=== PATIENT | male | born 1945 | race Caucasian/White ===

== ENCOUNTER 2016-12-26 19:52 | Inpatient (IN) | payer OTHER ==
--- NOTE | ~2016-12-26 | HP ---
History And Physical [address] [address] NAME: SHANNON SANDOVAL : 45 STATUS : ADM IN PAT#: [id number] AGE: 71 ADM/REG DATE : 12/26/16 MR#: [id number] REPORT SERV DATE: 12/27/16 DICTATED BY: SHANNON HARE DATE: 12/27/16 REPORT STATUS : Draft TRANSCRIBED BY: MODL DATE: 12/27/16 DATE OF ADMISSION: 12/26/2016 CHIEF COMPLAINT: Left hip pain. HISTORY: A 71-year-old male, fell walking in [place] and injured his left hip. Denies pain or injury elsewhere. No associated loss of consciousness, shortness of breath, chest pain, etc. ALLERGIES: NONE. MEDICATIONS: See chart. PAST MEDICAL HISTORY: History of CHF, AFib, hyperlipidemia, pleural effusion, COPD, renal failure, and diabetes. PAST SURGICAL HISTORY: Unknown. SOCIAL HISTORY: Two packs a day cigarettes for 50 years. Drinks alcohol, but is unclear how much. Here with his family. FAMILY HISTORY: No known anesthetic complications. REVIEW OF SYSTEMS: As above. PHYSICAL EXAMINATION: GENERAL: He is alert and oriented x3, in no apparent distress. HEENT: Atraumatic and normocephalic. NECK: Supple. CHEST: Symmetric and nontender. LUNGS: Per AA evaluation. CV: Regular. ABDOMEN: Soft. No mass. EXTREMITIES: Left lower extremity is short and externally rotated. SKIN: Intact. Compartment supple. 2+ pulses. NEURO: Sensorimotor without deficit. ASSESSMENT: Left intertrochanteric femur fracture. PLAN: ORIF. Risks, benefits, etc., were explained. The patient wishes to proceed. WTB/MODL History And Physical [address] [address] NAME: SHANNON SANDOVAL : 45 STATUS : ADM IN PAT#: [id number] AGE: 71 ADM/REG DATE : 12/26/16 MR#: [id number] REPORT SERV DATE: 12/27/16 DICTATED BY: SHANNON HARE DATE: 12/27/16 REPORT STATUS : Draft TRANSCRIBED BY: RUPERTO DATE: 12/27/16 Kathleen Hare M.D. / [id number] CC: Jen Freed JAMES DANIEL
--- NOTE | ~2016-12-26 | DS ---
Discharge Summary [facility] [address] [place]. [address] NAME: SHANNON SANDOVAL : 45 STATUS : DIS IN PAT#: [id number] AGE: 71 ADM/REG DATE : 12/26/16 MR#: [id number] REPORT SERV DATE: 01/04/17 DICTATED BY: SKINNY FINK DATE: 01/03/17 REPORT STATUS : Draft TRANSCRIBED BY: MODMayito DATE: 01/03/17 ADMISSION DATE: 12/26/2016 DISCHARGE DATE: 01/03/2017 DISCHARGE DIAGNOSES: 1. Mechanical fall with left hip fracture. 2. Chronic atrial fibrillation. 3. Probable dementia. 4. End-stage renal disease. 5. Hypertension. 6. Dialysis. CONSULTANTS: 1. Nephrology. 2. Orthopedic Surgery. HOSPITAL COURSE: This is a 71-year-old gentleman who was admitted to the hospital with a fall that resulted in a left hip fracture. There is an interim discharge summary by Dr. Omar Feng on 01/01/2017. I assumed care from 01/02/2017 and saw him for two days. At this point in time, we are simply waiting for insurance to authorize the patient's transfer to [facility]. The patient is being discharged today after insurance authorization. There is nothing more to add to the interim discharge summary by Dr. Feng. [facility]/RUPERTO Skinny Fink MD / [id number] CC: MD Arian Zuluaga
--- NOTE | ~2016-12-26 | OP ---
Record Of Operation [facility] [address] [place]. [address] NAME: SHANNON SANDOVAL : 45 STATUS : ADM IN [facility]#: [id number] AGE: 71 ADM/REG DATE : 12/26/16 MR#: [id number] REPORT SERV DATE: 12/27/16 DICTATED BY: OSMAN NETTLES DATE: 12/26/16 REPORT STATUS : Draft TRANSCRIBED BY: RUPERTO DATE: 12/26/16 DATE OF PROCEDURE: 12/26/2016 PROCEDURE PERFORMED: Left subclavian central venous line placement. INDICATION FOR PROCEDURE: No IV access at home. DESCRIPTION OF PROCEDURE: After informed consent was obtained from the , procedure was performed in the emergency room. The patient was prepped with chlorhexidine, draped completely. Using an Arrow triple-lumen catheter kit, the left subclavian vein was entered in the usual fashion without any bleeding or difficulty. A triple-lumen catheter was placed over guidewire. Lines were flushed and the central line was secured in place. The patient tolerated the procedure well. There were no immediate complications. A postprocedure chest x-ray will be performed and I will review it. /RUPERTO Osman Nettles M.D. / [id number] CC: Jen Freed
--- NOTE | ~2016-12-26 | HP ---
History And Physical [place] [id number] [facility] [place]. [address] NAME: SHANNON COSTA : 45 STATUS : ADM IN [facility]#: [id number] AGE: 71 ADM/REG DATE : 12/26/16 MR#: [id number] REPORT SERV DATE: 12/27/16 DICTATED BY: OSMAN NETTLES DATE: 12/26/16 REPORT STATUS : Draft TRANSCRIBED BY: MODMayito DATE: 12/26/16 DATE OF ADMISSION: 12/26/2016 CHIEF COMPLAINT: 1. Mechanical fall. 2. Left hip pain. HISTORY OF PRESENT ILLNESS: This is a 71-year-old female, who presents to the emergency room at [facility] with the above-mentioned complaint. History is obtained from the patient, but more so from his who is at bedside, as the patient was under the influence of narcotic pain medications. Review of data available on the [employer] system was also performed. According to available data, Mr. Costa fell down today in the parking lot of a restaurant as he got out of his car and he was walking towards the restaurant. His was still locking up the car and was not with him, and did not really see the fall, but she knew he fell. She rushed over there and he had sudden onset of excruciating left-sided pain and could not get up. EMS was summoned, and the patient was brought to the emergency room here for evaluation. At the time of my evaluation, he denied any chest pain, palpitations, or orthopnea. He has no cough, hemoptysis, night sweats, or weight loss. He had not had any other falls or loss of consciousness according to the . No history of recent fevers, chills, nausea, vomiting, or diarrhea. No history of recent hematemesis, hematochezia, or hematuria. He is on hemodialysis which was started yesterday again in [place]. Apparently he was followed by Nephrology here, had hemodialysis at [facility] and then at the [facility] here, but then was transferred to [place], [place], where they live. The patient's is unfortunately not able to tell us who the boiler inspector was. PAST MEDICAL HISTORY: His past medical history is significant for: 1. End-stage renal disease on hemodialysis in [place], [place]. 2. History of hypertension. 3. Insulin-dependent diabetes mellitus. SOCIAL HISTORY: He does not smoke, drink, or use recreational drugs. FAMILY HISTORY: Noncontributory. MEDICATIONS: His medications at home were reviewed by me in the chart today and reordered by me. REVIEW OF SYSTEMS: As in history of present illness. All other systems were reviewed and are unremarkable. PHYSICAL EXAMINATION: History And Physical [address] [address] NAME: SHANNON COSTA : 45 STATUS : ADM IN PAT#: [id number] AGE: 71 ADM/REG DATE : 12/26/16 MR#: [id number] REPORT SERV DATE: 12/27/16 DICTATED BY: OSMAN NETTLES DATE: 12/26/16 REPORT STATUS : Draft TRANSCRIBED BY: RUPERTO DATE: 12/26/16 GENERAL: This is a pleasant 71-year-old, not in any acute distress. HEENT: His head is atraumatic and normocephalic. He is alert, awake, oriented to time, place, and person, although right now he is drowsy and has to be aroused because of the intravenous pain medication that he received. Pupils were equal, reacting to light and accommodating. External ocular muscles were intact. NECK: Supple with no jugular venous distention, lymphadenopathy, or thyromegaly. LUNGS: Clear to auscultation with no wheezes, rubs, or crackles. HEART: Heart sounds were regular with no murmurs, rubs, or gallops. ABDOMEN: Soft and nontender. Bowel sounds are present. There was no organomegaly. EXTREMITIES: No cyanosis, clubbing, or edema. NEUROLOGIC: Grossly intact. He was able to move all four extremities. Higher functions appeared intact. VITAL SIGNS: His temperature was 97.4, pulse 59, respirations 17 a minute, blood pressure was 144/63, and oxygen saturations were 100% on 2 L via nasal cannula. LABORATORY DATA: Reviewed on the [employer] [place] [address], hemoglobin was 12.2, hematocrit 34.0, and platelet count was 206,000. Other labs are pending still because there was a delay in obtaining blood as there was absolutely no IV access possible even after the IV team had tried several times. Finally a central line was placed and a blood sample was available. Films of the chest x-ray and hip were reviewed by me on the PACS today and interpreted by me. Per my interpretation the chest x-ray did not show any cardiomegaly, infiltrates, lobar consolidation, or pleural effusions. There is a right hemodialysis catheter in place. X- ray of the hip were reviewed by me on the PACs today and interpreted by me showed left intertrochanteric fracture. A 12-lead EKG done in the emergency room was reviewed and interpreted by me. There is sinus rhythm with a rate of [address] elevations. There are frequent PVCs. IMPRESSION: 1. Fall at home. 2. Left hip pain. 3. Left hip fracture. 4. End-stage renal disease, on hemodialysis. 5. Hypertension. 6. Insulin-dependent diabetes mellitus. PLAN: We will admit Mr. Costa to the Hospitalist Service. The patient's does not remember who the Nephrology group is. He is currently on hemodialysis in [place], [place], according to her. We will start him on pain control, intravenously. Consult Orthopedic Service who have been called from the emergency room. The patient has no IV access at all, we will have to try and place a central line in order to even obtain blood and to continue his pain control. Meanwhile, we will keep him n.p.o. and place a North catheter. We will also start him on NovoLog insulin given subcutaneously per sliding scale for blood sugar control. He will be on SCDs for DVT prophylaxis at this time and we will stop his Eliquis. History And Physical [address] [address] NAME: SHANNON COSTA : 45 STATUS : ADM IN [facility]#: [id number] AGE: 71 ADM/REG DATE : 12/26/16 MR#: [id number] REPORT SERV DATE: 12/27/16 DICTATED BY: OSMAN NETTLES DATE: 12/26/16 REPORT STATUS : Draft TRANSCRIBED BY: MODMayito DATE: 12/26/16 We will continue all other medications and treatments at this time. Please see today's orders for details. I have discussed the above plans with the patient and the family. Questions were answered and they are agreeable to the above recommendations. Hospitalist Service will be following him during his stay here. /RUPERTO Osman Nettles M.D. / [id number] CC: Jen Freed MD
--- NOTE | ~2016-12-26 | OP ---
Record Of Operation [facility] [address] [place]. [address] NAME: SHANNON SANDOVAL : 45 STATUS : ADM IN PAT#: [id number] AGE: 71 ADM/REG DATE : 12/26/16 MR#: [id number] REPORT SERV DATE: 12/28/16 DICTATED BY: SHANNON HARE DATE: 12/27/16 REPORT STATUS : Draft TRANSCRIBED BY: MODMayito DATE: 12/27/16 DATE OF PROCEDURE: PREOPERATIVE DIAGNOSIS: Left intertrochanteric femur fracture. POSTOPERATIVE DIAGNOSIS: Left intertrochanteric femur fracture. OPERATION: [place]/intertrochanteric femur fracture. SIDE: Left. SIZE: See chart. ESTIMATED BLOOD LOSS: 100 mL. COMPLICATIONS: None. TOURNIQUET TIME: None. SPECIMENS: None. ADDENDUM: He had a large fracture blister just posterior to the incision that we covered with Telfa and a separate dressing. This was from prior to going to surgery. ANESTHESIA: See chart. PROCEDURE: The patient was taken to the preoperative holding area. The patient was appropriately identified, marked and the consent form carefully checked. The patient was taken then to the operating room and anesthetic was induced per the anesthesiologist. The patient was carefully positioned, carefully padded, prepped and draped on the fracture table. Prior to the surgical prep a closed reduction was obtained by closed method using fluoroscopic guidance. The patient was then prepped and draped in the usual sterile fashion. Using fluoroscopic guidance, a straight lateral incision was made. This was followed by electrocautery through the fat, the IT band and the vastus, staying towards the posterior portion of the lateral vastus to decrease the amount of muscle tissue that was cut through. Meticulous hemostasis was obtained with electrocautery. Lateral femoral cortex was exposed further with periosteal elevator and appropriate retraction. A guide was then used to place a guidewire basically in the center of the head on AP and lateral x-ray views. This was followed by depth gauge and then triple reamer. Lag screw was placed over the guidewire. The sliding plate was then placed and impacted and checked to be sure it was down snug. The plate was held with a plate clamp distally and reduction again checked. Record Of Operation [facility] [address] [facility] [place]. [address] NAME: SHANNON SANDOVAL : 45 STATUS : ADM IN PAT#: [id number] AGE: 71 ADM/REG DATE : 12/26/16 MR#: [id number] REPORT SERV DATE: 12/28/16 DICTATED BY: SHANNON HARE DATE: 12/27/16 REPORT STATUS : Draft TRANSCRIBED BY: RUPERTO DATE: 12/27/16 The screw holes in the plate were then filled with screws in the standard fashion with drill depth gauge and then self-tapping screw placement. The screws were then tightened by hand. All traction was released and the compression screw placed and tightened. Again x-ray views were checked to ascertain reduction and screw length. The wound was then irrigated and closed with sutures in the vastus. A medium drain was placed distally anteriorly between the vastus and the IT band, then sutured on the IT band, 2-0 subcutaneous, and henry in the skin. Wound dressed sterilely. The patient was awakened and carefully transferred to the bed and transferred to the recovery room without incident. COUNTS: Correct. WTB/RUPERTO Kathleen Hare M.D. / [id number] CC: Jen Freed
--- NOTE | ~2016-12-26 | IDS ---
Interim Discharge Summary [facility] [address] [place]. [address] NAME: SHANNON SANDOVAL : 45 STATUS : ADM IN [facility]#: [id number] AGE: 71 ADM/REG DATE : 12/26/16 MR#: [id number] REPORT SERV DATE: 01/01/17 DICTATED BY: SYMONE LAMB DATE: 01/01/17 REPORT STATUS : Draft TRANSCRIBED BY: MODL DATE: 01/01/17 ADMISSION DATE: 12/26/2016 DISCHARGE DATE: CURRENT HOSPITAL DIAGNOSES: 1. Mechanical fall with left hip fracture. 2. Chronic atrial fibrillation. 3. Probable dementia. 4. End-stage renal disease. 5. Hypertension. 6. Diabetes. CONSULTATIONS: Nephrology and Orthopedics. PROCEDURES: 1. Line placement. 2. CT scan of the brain done on 12/27/2016, showing no acute intracranial abnormality. 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 3. Carotid ultrasound on 12/29/2016 showing less than 50% stenosis, right carotid. No vulnerability, left carotid. Mild vulnerability of posterior wall of internal carotid. 4. Echocardiogram. CURRENT PHYSICAL FINDINGS AND HISTORY OF PRESENT ILLNESS: Please see initial dictated H and P by Dr. Benavidez. In brief, the patient was recently hospitalized at [facility] and rehab was at home, very short period of time, had a fall at a restaurant, and was brought for acute hip fracture. Vital signs at time of admission, BP was 144/63. He has had no fever during his hospital stay. His atrial fib has been rate controlled in the 60s and 70s. LAB WORK: Lab work has been remarkable for his end-stage renal disease. He had an A1c of 6.6. His initial white count on presentation was 11.6, it is currently 9.8. He had a hemoglobin of 11.2 on 12/26/2016, 12.2 on 12/27/2016, 11.4 on 12/28/2016, dropping to 9.6 on 12/29/2016 and 8.2 on 12/30/2016, stabilizing at 9 on 01/01/2017. Initial INR was 3.0, 2.6 on 12/31/2016 and 2.6 on 01/01/2017. Blood cultures drawn on 12/27/2016 are negative x4 days. Urine culture was negative x1 day. The patient was admitted for his acute hip fracture. Orthopedics and Nephrology were consulted as he normally dialyzes. He was already on therapeutic anticoagulation with his Coumadin. Sliding scale insulin was given. His home medications were reviewed and dosed appropriately. Reasonable pain medications were also given. I saw the patient on 12/27/2016, ordered his lab. On discussion with his , she states he has had increasing dementia-type symptoms. A CT brain was ordered to rule out CVA and also to rule out any secondary injury from his fall while he was on Coumadin. This showed the findings as above. Orthopedics elected to take the patient for hip surgery, which was successful. Nephrology has been supervising his dialysis here. He has begun working with PT, difficulty and placement as he has had some issues of previous nursing homes in the past. Interim Discharge Summary [address] [address] NAME: SHANNON SANDOVAL : 45 STATUS : ADM IN [facility]#: [id number] AGE: 71 ADM/REG DATE : 12/26/16 MR#: [id number] REPORT SERV DATE: 01/01/17 DICTATED BY: SYMONE LAMB DATE: 01/01/17 REPORT STATUS : Draft TRANSCRIBED BY: RUPERTO DATE: 01/01/17 Current plan is to await placement when cleared by Renal and Orthopedics. Arrange inpatient dialysis. He is currently on subcu heparin as his Coumadin. He is on temporary hold, but may be restarted now that his anemia has stabilized. TLF/MODL Symone Lamb M.D. / [id number] CC: Jen Freed
[2016-12-26] MEDS ORDERED: INSNOVR (20:19)
[2016-12-26] MEDS ORDERED: ASAB PO (20:20)
[2016-12-26] MEDS ORDERED: DALIRESP500 MCG PO (20:21)
[2016-12-26] MEDS ORDERED: ALBUTEROL0.083 % INH (20:21)
[2016-12-26] MEDS ORDERED: BUM2 PO (20:21)
[2016-12-26] MEDS ORDERED: SPIR100 PO (20:21)
[2016-12-26] MEDS ORDERED: CARTIA XT120 MG/24 PO (20:24)
[2016-12-26] MEDS ORDERED: PEP20 PO (20:25)
[2016-12-26] MEDS ORDERED: DSS PO (20:25)
[2016-12-26] MEDS ORDERED: REM15 PO (20:26)
[2016-12-26] MEDS ORDERED: SPIRIVA INH (20:26)
[2016-12-26] MEDS ORDERED: LOP100 PO (20:26)
[2016-12-26] MEDS ORDERED: VITAMIN D31000 UNIT PO (20:27)
[2016-12-26] MEDS ORDERED: EFFEXXR37 PO (20:27)
[2016-12-26] MEDS ORDERED: CRESTOR20 MG PO (20:28)
[2016-12-26] MEDS ORDERED: ELIQUIS 2.5 MG2.5 MG PO (20:29)
[2016-12-26 23:38] LABS: BASOPHILS 0.3 %; BASOPHILS ABSOLUTE 0.04 10/3/uL (0.0-0.16); EOSINOPHILS 0.3 %; EOSINOPHILS ABSOLUTE 0.04 10/3/uL (0.0-0.53); HEMOGLOBIN 11.2 g/dL (13.6-17.8); IMMATURE GRANULOCYTES 2.2 %; IMMATURE GRANULOCYTES ABSOLUTE 0.26 10/3/uL (0.0-0.11); LYMPHOCYTES 11.2 %; MEAN CORPUS HGB CONC 32.9 g/dL (32.0-36.0); MEAN CORPUSCULAR HEMOGLOB 29.7 pg (26.0-34.0); MEAN CORPUSCULAR VOLUME 90.2 fL (80-100); MEAN PLATELET VOLUME 10.9 fL (9.2-13.0); MONOCYTES 10.7 %; MONOCYTES ABSOLUTE 1.24 10/3/uL (0.21-1.20); NEUTROPHILS 75.3 %; NEUTROPHILS ABSOLUTE 8.74 10/3/uL (2.02-8.40); PLATELET COUNT 206 10/3/uL (150-400); RBC DISTRIBUTION WIDTH 14.7 % (12.0-16.0); RED CELL COUNT 3.77 10/6/uL (4.7-6.1); WHITE BLOOD CELLS 11.6 10/3/uL (4.5-10.5)
[2016-12-26 23:39] LABS: ER CBC TAT 0 Hrs 04 MinsNP; MANUAL DIFF NO %
[2016-12-26 23:55] LABS: BUN (BLOOD UREA NITROGEN) 27 MG/DL (6-23); CALCIUM, SERUM 8.5 MG/DL (8.5-10.4); CHEST PAIN PROFILE TAT 0 Hrs 21 Mins; CHLORIDE, SERUM 97 MMOL/L (96-112); CO2 (CARBON DIOXIDE) 27 MMOL/L (24-34); CREATININE 5.06 MG/DL (0.70-1.30); GFR AFRICAN AMERICAN 12 ML/MIN (>=60); GFR NON AFRICAN AMERICAN 11 ML/MIN (>=60); GLUCOSE, SERUM 138 MG/DL (60-99); POTASSIUM, SERUM 4.3 MMOL/L (3.5-5.3); SODIUM, SERUM 138 MMOL/L (135-148); TROPONIN I 0.02 NG/ML (<0.05)
[2016-12-26 23:56] LABS: INTERNATIONAL NORMAL RATI 1.1 UNITS (-); PARTIAL THROMBO TIME 39.8 SEC (22.5-37.2); PROTIME (NOT ORD) 14.3 SEC (12.0-14.5)
[2016-12-27 02:33] LABS: HEMATOCRIT 37.1 % (40.0-51.0); HEMOGLOBIN 12.2 g/dL (13.6-17.8); MEAN CORPUS HGB CONC 32.9 g/dL (32.0-36.0); MEAN CORPUSCULAR HEMOGLOB 30.6 pg (26.0-34.0); MEAN PLATELET VOLUME 10.8 fL (9.2-13.0); PLATELET COUNT 196 10/3/uL (150-400); RBC DISTRIBUTION WIDTH 14.5 % (12.0-16.0); RED CELL COUNT 3.99 10/6/uL (4.7-6.1); WHITE BLOOD CELLS 11.2 10/3/uL (4.5-10.5)
[2016-12-27 02:36] LABS: MANUAL DIFF YES %
[2016-12-27 02:47] LABS: BUN (BLOOD UREA NITROGEN) 28 MG/DL (6-23); CALCIUM, SERUM 8.8 MG/DL (8.5-10.4); CHLORIDE, SERUM 98 MMOL/L (96-112); CO2 (CARBON DIOXIDE) 28 MMOL/L (24-34); CREATININE 5.49 MG/DL (0.70-1.30); GFR AFRICAN AMERICAN 11 ML/MIN (>=60); GFR NON AFRICAN AMERICAN 10 ML/MIN (>=60); GLUCOSE, SERUM 150 MG/DL (60-99); PHOSPHORUS, SERUM 3.6 MG/DL (2.5-4.5); POTASSIUM, SERUM 4.5 MMOL/L (3.5-5.3); SODIUM, SERUM 140 MMOL/L (135-148)
[2016-12-27 02:55] LABS: IMMATURE GRANS ABSOLUTE (CALC) 0.11 10/3/uL (0.0-0.11); LYMPHOCYTES 15 %; LYMPHOCYTES ABSOLUTE (CALC) 1.68 10/3/uL (0.67-4.30); METAMYELOCYTES 1 %; MONOCYTES 8 %; NEUTROPHILS ABSOLUTE (CALC) 8.51 10/3/uL (2.02-8.40); PLATELET ESTIMATE ADQ (ADEQUATE); RBC MORPHOLOGY NORM (NORMAL); SEGMENTED NEUTROPHIL (0) 76 %; TOTAL NUCLEATED CELLS 100
[2016-12-27 08:56] LABS: INTERNATIONAL NORMAL RATI 1.2 UNITS (-); PROTIME (NOT ORD) 15.1 SEC (12.0-14.5)
[2016-12-27 10:52] LABS: ASCORBIC ACID (UR NOT ORDER) NEG (NEG); BILIRUBIN, URINE NEGATIVE (NEG); KETONE, URINE TRACE MG/DL (NEG); LEUKOCYTE ESTERASE(NOT OR SMALL (NEG); WBC (NOT ORDERED) (RFLEX) 57 (0-5)
[2016-12-27 22:16] LABS: INTERNATIONAL NORMAL RATI 1.2 UNITS (-); PROTIME (NOT ORD) 14.8 SEC (12.0-14.5)
[2016-12-28 04:45] LABS: HEMATOCRIT 35.1 % (40.0-51.0); HEMOGLOBIN 11.4 g/dL (13.6-17.8)
[2016-12-28 04:54] LABS: INTERNATIONAL NORMAL RATI 1.2 UNITS (-); PROTIME (NOT ORD) 14.7 SEC (12.0-14.5)
[2016-12-28 05:33] LABS: ALBUMIN 2.6 G/DL (3.5-5.0); CALCIUM, SERUM 8.4 MG/DL (8.5-10.4); CHLORIDE, SERUM 90 MMOL/L (96-112); GLUCOSE, SERUM 170 MG/DL (60-99); SODIUM, SERUM 142 MMOL/L (135-148)
[2016-12-28 05:36] LABS: BUN (BLOOD UREA NITROGEN) 42 MG/DL (6-23); CO2 (CARBON DIOXIDE) 17 MMOL/L (24-34); CREATININE 7.24 MG/DL (0.70-1.30); GFR AFRICAN AMERICAN 8 ML/MIN (>=60); GFR NON AFRICAN AMERICAN 7 ML/MIN (>=60); PHOSPHORUS, SERUM 7.7 MG/DL (2.5-4.5); POTASSIUM, SERUM 5.6 MMOL/L (3.5-5.3)
[2016-12-29 07:08] LABS: HEMOGLOBIN 9.6 g/dL (13.6-17.8)
[2016-12-29 07:09] LABS: INTERNATIONAL NORMAL RATI 1.4 UNITS (-)
[2016-12-29 07:11] LABS: ALBUMIN 2.3 G/DL (3.5-5.0); BUN (BLOOD UREA NITROGEN) 33 MG/DL (6-23); CALCIUM, SERUM 9.1 MG/DL (8.5-10.4); CHLORIDE, SERUM 100 MMOL/L (96-112); CO2 (CARBON DIOXIDE) 24 MMOL/L (24-34); CREATININE 6.14 MG/DL (0.70-1.30); GFR AFRICAN AMERICAN 10 ML/MIN (>=60); GFR NON AFRICAN AMERICAN 8 ML/MIN (>=60); GLUCOSE, SERUM 168 MG/DL (60-99); PHOSPHORUS, SERUM 5.4 MG/DL (2.5-4.5); POTASSIUM, SERUM 4.3 MMOL/L (3.5-5.3); PROTIME (NOT ORD) 17.3 SEC (12.0-14.5); SODIUM, SERUM 142 MMOL/L (135-148)
[2016-12-29 07:14] LABS: HEMATOCRIT 29.6 % (40.0-51.0)
[2016-12-30 08:32] LABS: BASOPHILS 0.3 %; BASOPHILS ABSOLUTE 0.04 10/3/uL (0.0-0.16); EOSINOPHILS 2.6 %; EOSINOPHILS ABSOLUTE 0.35 10/3/uL (0.0-0.53); HEMOGLOBIN 8.2 g/dL (13.6-17.8); IMMATURE GRANULOCYTES 1.3 %; IMMATURE GRANULOCYTES ABSOLUTE 0.18 10/3/uL (0.0-0.11); LYMPHOCYTES 11.1 %; LYMPHOCYTES ABSOLUTE 1.48 10/3/uL (0.67-4.30); MEAN CORPUS HGB CONC 33.2 g/dL (32.0-36.0); MEAN CORPUSCULAR HEMOGLOB 30.8 pg (26.0-34.0); MEAN CORPUSCULAR VOLUME 92.9 fL (80-100); MONOCYTES 8.9 %; MONOCYTES ABSOLUTE 1.19 10/3/uL (0.21-1.20); NEUTROPHILS 75.8 %; NEUTROPHILS ABSOLUTE 10.14 10/3/uL (2.02-8.40); PLATELET COUNT 250 10/3/uL (150-400); WHITE BLOOD CELLS 13.4 10/3/uL (4.5-10.5)
[2016-12-30 08:33] LABS: ALBUMIN 2.1 G/DL (3.5-5.0); CALCIUM, SERUM 8.7 MG/DL (8.5-10.4); CHLORIDE, SERUM 98 MMOL/L (96-112); CO2 (CARBON DIOXIDE) 24 MMOL/L (24-34); POTASSIUM, SERUM 4.2 MMOL/L (3.5-5.3)
[2016-12-30 08:34] LABS: BUN (BLOOD UREA NITROGEN) 49 MG/DL (6-23); GFR AFRICAN AMERICAN 7 ML/MIN (>=60); GFR NON AFRICAN AMERICAN 6 ML/MIN (>=60); GLUCOSE, SERUM 214 MG/DL (60-99); PHOSPHORUS, SERUM 4.3 MG/DL (2.5-4.5); SODIUM, SERUM 135 MMOL/L (135-148)
[2016-12-30 08:36] LABS: HEMATOCRIT 24.7 % (40.0-51.0); MANUAL DIFF NO %; RED CELL COUNT 2.66 10/6/uL (4.7-6.1)
[2016-12-30 18:00] LABS: PROTIME (NOT ORD) 30.5 SEC (12.0-14.5)
[2016-12-31 11:44] LABS: INTERNATIONAL NORMAL RATI 2.6 UNITS (-); PROTIME (NOT ORD) 27.8 SEC (12.0-14.5)
[2017-01-01 06:33] LABS: BASOPHILS 0.4 %; BASOPHILS ABSOLUTE 0.04 10/3/uL (0.0-0.16); EOSINOPHILS 4.1 %; IMMATURE GRANULOCYTES 3.1 %; LYMPHOCYTES 19.9 %; LYMPHOCYTES ABSOLUTE 1.95 10/3/uL (0.67-4.30); MEAN CORPUS HGB CONC 32.5 g/dL (32.0-36.0); MEAN CORPUSCULAR HEMOGLOB 30.6 pg (26.0-34.0); MEAN CORPUSCULAR VOLUME 94.2 fL (80-100); MEAN PLATELET VOLUME 10.6 fL (9.2-13.0); MONOCYTES 12.2 %; MONOCYTES ABSOLUTE 1.19 10/3/uL (0.21-1.20); NEUTROPHILS 60.3 %; NEUTROPHILS ABSOLUTE 5.91 10/3/uL (2.02-8.40); PLATELET COUNT 306 10/3/uL (150-400); RED CELL COUNT 2.94 10/6/uL (4.7-6.1); WHITE BLOOD CELLS 9.8 10/3/uL (4.5-10.5)
[2017-01-01 06:34] LABS: INTERNATIONAL NORMAL RATI 2.6 UNITS (-); PROTIME (NOT ORD) 27.6 SEC (12.0-14.5)
[2017-01-01 06:36] LABS: HEMATOCRIT 27.7 % (40.0-51.0); MANUAL DIFF NO %
[2017-01-01 06:41] LABS: ALBUMIN 2.3 G/DL (3.5-5.0); BUN (BLOOD UREA NITROGEN) 45 MG/DL (6-23); CALCIUM, SERUM 8.7 MG/DL (8.5-10.4); CHLORIDE, SERUM 99 MMOL/L (96-112); CO2 (CARBON DIOXIDE) 26 MMOL/L (24-34); CREATININE 7.27 MG/DL (0.70-1.30); GFR AFRICAN AMERICAN 8 ML/MIN (>=60); GFR NON AFRICAN AMERICAN 7 ML/MIN (>=60); GLUCOSE, SERUM 122 MG/DL (60-99); PHOSPHORUS, SERUM 4.7 MG/DL (2.5-4.5); POTASSIUM, SERUM 3.9 MMOL/L (3.5-5.3); SODIUM, SERUM 139 MMOL/L (135-148)
[2017-01-02 04:43] LABS: INTERNATIONAL NORMAL RATI 2.2 UNITS (-); PROTIME (NOT ORD) 24.1 SEC (12.0-14.5)
[2017-01-02 04:52] LABS: ALBUMIN 2.3 G/DL (3.5-5.0); CALCIUM, SERUM 8.8 MG/DL (8.5-10.4); CHLORIDE, SERUM 100 MMOL/L (96-112); CO2 (CARBON DIOXIDE) 25 MMOL/L (24-34); GFR AFRICAN AMERICAN 7 ML/MIN (>=60); GFR NON AFRICAN AMERICAN 6 ML/MIN (>=60); GLUCOSE, SERUM 112 MG/DL (60-99); PHOSPHORUS, SERUM 5.6 MG/DL (2.5-4.5); SODIUM, SERUM 140 MMOL/L (135-148)
[2017-01-02 04:53] LABS: BUN (BLOOD UREA NITROGEN) 58 MG/DL (6-23); CREATININE 8.43 MG/DL (0.70-1.30)
[2017-01-02 04:55] LABS: HEMATOCRIT 27.6 % (40.0-51.0); HEMOGLOBIN 8.8 g/dL (13.6-17.8); MEAN CORPUS HGB CONC 31.9 g/dL (32.0-36.0); MEAN CORPUSCULAR HEMOGLOB 29.8 pg (26.0-34.0); MEAN CORPUSCULAR VOLUME 93.6 fL (80-100); MEAN PLATELET VOLUME 10.6 fL (9.2-13.0); PLATELET COUNT 320 10/3/uL (150-400); RBC DISTRIBUTION WIDTH 15.2 % (12.0-16.0); RED CELL COUNT 2.95 10/6/uL (4.7-6.1); WHITE BLOOD CELLS 10.3 10/3/uL (4.5-10.5)
[2017-01-02 04:56] LABS: MANUAL DIFF YES %
[2017-01-02 05:24] LABS: BAND NEUTROPHILS 3 %; BASOPHILS 1 %; EOSINOPHILS 2 %; EOSINOPHILS ABSOLUTE (CALC) 0.21 10/3/uL (0.0-0.53); IMMATURE GRANS ABSOLUTE (CALC) 0.21 10/3/uL (0.0-0.11); LYMPHOCYTES 21 %; LYMPHOCYTES ABSOLUTE (CALC) 2.16 10/3/uL (0.67-4.30); METAMYELOCYTES 1 %; MONOCYTES 5 %; MONOCYTES ABSOLUTE (CALC) 0.52 10/3/uL (0.21-1.20); MYELOCYTES 1 %; NEUTROPHILS ABSOLUTE (CALC) 7.11 10/3/uL (2.02-8.40); SEGMENTED NEUTROPHIL (0) 66 %; TOTAL NUCLEATED CELLS 100
[2017-01-02 05:25] LABS: PLATELET ESTIMATE ADQ (ADEQUATE); RBC MORPHOLOGY NORM (NORMAL)
[2017-01-03 05:03] LABS: INTERNATIONAL NORMAL RATI 1.8 UNITS (-); PROTIME (NOT ORD) 20.6 SEC (12.0-14.5)
== END 2017-01-03 20:44 | DRG 480 ==
LOC: ER 19:52 → 4SO 23:47
PROVIDERS: Emergency Medicine; Internal Medicine; Internal Medicine Nephrology; Internal Medicine Pulmonary Disease; Nurse Practitioner; Specialist
PROC: 02HV33Z Insertion of Infusion Device into Superior Vena Cava, Percutaneous Approach (ICD-10-PCS; 2016-12-26)
PROC: 0QS734Z Reposition Left Upper Femur with Internal Fixation Device, Percutaneous Approach (ICD-10-PCS; principal; 2016-12-28)
PROC: 5A1D60Z (ICD-10-PCS; 2016-12-28)
DX: S72.142A Displaced intertrochanteric fracture of left femur, initial encounter for closed fracture (principal); N18.6 End stage renal disease; I50.9 Heart failure, unspecified; I13.0 Hypertensive heart and chronic kidney disease with heart failure and stage 1 through stage 4 chronic kidney disease, or unspecified chronic kidney disease; F03.90 Unspecified dementia, unspecified severity, without behavioral disturbance, psychotic disturbance, mood disturbance, and anxiety; D62 Acute posthemorrhagic anemia; J44.1 Chronic obstructive pulmonary disease with (acute) exacerbation; E11.22 Type 2 diabetes mellitus with diabetic chronic kidney disease; W18.30XA Fall on same level, unspecified, initial encounter; Y93.89 Activity, other specified; Y92.29 Other specified public building as the place of occurrence of the external cause; I48.2 Chronic atrial fibrillation; Z79.01 Long term (current) use of anticoagulants; F17.210 Nicotine dependence, cigarettes, uncomplicated; Z99.2 Dependence on renal dialysis; N18.9 Chronic kidney disease, unspecified; Z79.4 Long term (current) use of insulin; J44.9 Chronic obstructive pulmonary disease, unspecified; E87.5 Hyperkalemia; F32.9 Major depressive disorder, single episode, unspecified; D63.1 Anemia in chronic kidney disease; Z86.73 Personal history of transient ischemic attack (TIA), and cerebral infarction without residual deficits; E78.5 Hyperlipidemia, unspecified; R53.1 Weakness
CPT/HCPCS: 36415; 70450; 71010; 72170; 73502-LT; 76000; 80048; 80069; 81001; 82962; 83036; 83735; 84100; 84484; 85014; 85018; 85025; 85610; 85730; 86850; 86900; 86901; 87040; 87086; 93005; 93880; 94640; 96372; 97110-GO; 97110-GP; 97162-GP; 97166-GO; 97530-GP; 97535-GO; 99285; A9270-GY; C1713; C8929; G0257; J0690; J1170; J1885; J2274; J2370; J2405; J2550; J2710; J2795; J3010; Q9957